=== PATIENT | female | born 1975 | race Two or more races ===

== ENCOUNTER 2018-03-26 15:22 | Outpatient (CLI) | payer OTHER ==
[2018-03-26] MEDS ORDERED: LEVO25TA4 PO (15:56)
[2018-03-31] MEDS ORDERED: FENTANYL PF 100 MCG/2ML ONE (07:09)
[2018-03-31] MEDS ORDERED: MIDAZOLAM 1 MG/ML, 2ML ONE (07:09)
[2018-03-31] MEDS ORDERED: LORazepam 2 MG/ML, 1ML ONE (07:17)
[2018-03-31] MEDS ORDERED: METOCLOPRAMIDE 5 MG/ML, 2ML ONE (07:17)
[2018-03-31] MEDS ORDERED: ACETAMINOPHEN 500 MG TABLET ONE (07:18)
[2018-03-31] MEDS ORDERED: GABAPENTIN 300 MG CAPSULE ONE (07:19)
== END 2018-03-26 23:59 | disposition home or self-care (01) ==
LOC: STAR 15:22
PROVIDERS: ATTEND Obstetrics & Gynecology Female Pelvic Medicine and Reconstructive Surgery
DX: Z02.9 Encounter for administrative examinations, unspecified (principal)

== ENCOUNTER 2018-03-31 05:41 | Day surgery (SDC) | payer OTHER ==
[~2018-03-31] VITALS: Ht 162.6 cm; Wt 67.0 kg
[~2018-03-31 05:41] MED LIST: LEVO25TA4 PO
[2018-03-31] MEDS ORDERED: LACTATED RINGERS 1,000 ML IV SCH (06:13)
[2018-03-31 06:18] VITALS: BP 145/86
[2018-03-31 06:31] LABS: HCG UR SG 1.017 (1.003-1.030)
[2018-03-31] MEDS ORDERED: EPINEPHRINE 1 MG/ML, 1ML ONE (06:33)
[2018-03-31] MEDS ORDERED: BUPIVACAINE/PF 0.25% ONE (06:33)
[2018-03-31] MEDS ORDERED: NEOMY/POLYMYXIN B GU IRR. 1 ML ONE (06:34)
[2018-03-31] MEDS ORDERED: METOCLOPRAMIDE 5 MG/ML, 2ML ONE (07:22)
[2018-03-31] MEDS ORDERED: LORazepam 2 MG/ML, 1ML ONE (07:23)
[2018-03-31] MEDS ORDERED: GABAPENTIN 300 MG CAPSULE PO ONE (07:30)
[2018-03-31] MEDS ORDERED: ACETAMINOPHEN 500 MG TABLET PO ONE (07:30)
[2018-03-31] MEDS ORDERED: LORazepam 2 MG/ML, 1ML IVPush ONE (07:30)
[2018-03-31] MEDS ORDERED: METOCLOPRAMIDE 5 MG/ML, 2ML IVPush ONE (07:30)
[2018-03-31] MEDS ORDERED: DEXAMETHASONE 4 MG/ML, 1ML ONE (07:35)
[2018-03-31] MEDS ORDERED: KETOROLAC 30 MG/1 ML ONE (07:35)
[2018-03-31] MEDS ORDERED: ONDANSETRON 2MG/ML, 2ML ONE (07:35)
[2018-03-31] MEDS ORDERED: MIDAZOLAM 1 MG/ML, 5ML ONE (07:35)
[2018-03-31] MEDS ORDERED: CEFAZOLIN 1,000 MG ONE (07:35)
[2018-03-31] MEDS ORDERED: FUROSEMIDE 20 MG/2 ML ONE (08:57)
[2018-03-31] MEDS ORDERED: FENTANYL PF 100 MCG/2ML ONE (09:37)
[2018-03-31] MEDS ORDERED: MEPERIDINE/PF 25MG/ML,1ML ONE (09:46)
[2018-03-31] MEDS: MEPERIDINE/PF 25MG/0.5ML IVPush PRN ×2 (09:50→10:05)
[2018-03-31] MEDS: FENTANYL PF 100 MCG/2ML IV PRN ×2 (10:00→10:15)
[2018-03-31] MEDS ORDERED: OXYcodone 5 MG/5 ML ORAL.SOL UDC PO PRN (10:00)
[2018-03-31] MEDS ORDERED: HYDROmorphone 1 MG/ML, 1ML IV PRN (10:00)
[2018-03-31] MEDS ORDERED: ONDANSETRON 2MG/ML, 2ML IVPush PRN (10:00)
[2018-03-31] MEDS ORDERED: LABETALOL 5MG/ML, 20ML IV PRN (10:00)
[2018-03-31] MEDS ORDERED: MIDAZOLAM 1 MG/ML, 2ML IV PRN (10:00)
[2018-03-31] MEDS ORDERED: OXYcodone 5 MG/5 ML ORAL.SOL UDC ONE (10:02)
[2018-03-31] MEDS ORDERED: HYDROmorphone 2 MG/ML, 1ML ONE (10:24)
== END 2018-03-31 13:40 | disposition home or self-care (01) ==
LOC: OUT 05:41
PROVIDERS: ATTEND Obstetrics & Gynecology Female Pelvic Medicine and Reconstructive Surgery
DX: D25.2 Subserosal leiomyoma of uterus (principal); N81.2 Incomplete uterovaginal prolapse; N94.10 Unspecified dyspareunia; N81.89 Other female genital prolapse; N88.8 Other specified noninflammatory disorders of cervix uteri; N39.46 Mixed incontinence; N80.3 Endometriosis of pelvic peritoneum; N32.81 Overactive bladder; E03.9 Hypothyroidism, unspecified
CPT/HCPCS: 57265; 57282; 57288; 58552; 81025; 88307; C1771; J0171; J0690; J1100; J1885; J1940; J2060; J2175; J2250; J2405; J2765; J3010; J3490; J7120